=== PATIENT | male | born 1990 | race Caucasian/White ===

== ENCOUNTER 2017-04-23 01:45 | Emergency (ER) | payer BC ==
[2017-04-23 02:22] VITALS: BP 177/80
[2017-04-23 02:46] LABS: CHLORIDE,CL 102 mEq/L (98-106); SODIUM,NA 137 mEq/L (136-145)
--- NOTE | 2017-04-23 02:47 | EDM.PDOC ---
ED HPI GENERAL MEDICAL PROBLEM - General Chief Complaint: General Stated Complaint: anxiety Time Seen by Provider: 04/23/17 02:30 Source of Information: Reports: Patient History Limitations: Reports: No Limitations - History of Present Illness INITIAL COMMENTS - FREE TEXT/NARRATIVE: Oswaldo is a 26 year old male who presents to the ED with complaints of heart palpitations and a tightness in his chest. He reports that on he had an episode, which lasted 4-5 minutes, of his heart racing. He reports he kind of got panicked and worried. He reports that since then he has had a tightness in his left upper chest. He reports that he feels like its in his head and he worries about it. He reports that he has been able to sleep the last two nights , but tonight he fell asleep and had an episode where he had a jolt through his body. He denies any history of anxiety, but does report he has had increased stress in his life. 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 He does not feel this affects him, but his father feels that maybe he has taken on too much recently. Denies any real chest pain, other than what he describes as tightness. Denies any shortness of breath, cough, N/V/D, or recent illness. Does report he has high blood pressure. He reports he takes 100 mg losartan daily. He has been taking his blood pressure medications as prescribed. Does report that he has been checking his blood pressure at home and it runs 160's/80 's. No family history of early cardiac disease. Patient does report he has an appointment scheduled with his PCP Dr. Vásquez this afternoon. 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: Other Medication(s) (NyQuil) - Related Data Allergies Allergy/AdvReac Type Severity Reaction Status Date / Time No Known Allergies Allergy Verified 04/23/17 02:02 Home Meds: Home Meds Losartan [Cozaar] 1 tab PO DAILY 10/01/16 [History] Past Medical History HEENT History: Reports: Impaired Vision Cardiovascular History: Reports: Hypertension Social & Family History - Family History Family Medical History: Noncontributory - Tobacco Use Smoking Status *Q: Never Smoker Second Hand Smoke Exposure: No - Caffeine Use Caffeine Use: Reports: Coffee, Soda - Recreational Drug Use Recreational Drug Use: No ED ROS GENERAL - Review of Systems Review Of Systems: See Below Constitutional: Reports: No Symptoms. Denies: Fever, Chills, Malaise, Weakness , Fatigue HEENT: Reports: No Symptoms Respiratory: Reports: No Symptoms. Denies: Shortness of Breath, Pleuritic Chest Pain, Cough, Sputum Cardiovascular: Reports: Chest Pain (tightness to left upper ), Blood Pressure Problem (high blood pressure), Palpitations (intermittent). Denies: Dyspnea on Exertion, Edema, Lightheadedness, Syncope Endocrine: Reports: No Symptoms GI/Abdominal: Reports: No Symptoms. Denies: Abdominal Pain, Diarrhea, Nausea, Vomiting : Reports: No Symptoms Musculoskeletal: Reports: No Symptoms Skin: Reports: No Symptoms Neurological: Reports: No Symptoms. Denies: Confusion, Dizziness, Headache Psychiatric: Reports: Anxiety Hematologic/Lymphatic: Reports: No Symptoms Immunologic: Reports: No Symptoms ED EXAM, GENERAL - Physical Exam Exam: See Below Exam Limited By: No Limitations General Appearance: Alert, WD/WN, Anxious Eye Exam: Bilateral Eye: PERRL Head: Atraumatic, Normocephalic Neck: Normal Inspection, Supple, Non-Tender, Full Range of Motion Respiratory/Chest: No Respiratory Distress, Lungs Clear, Normal Breath Sounds, No Accessory Muscle Use, Chest Non-Tender Cardiovascular: Normal Peripheral Pulses, Regular Rate, Rhythm, No Edema, No Gallop, No JVD, No Murmur, No Rub Neurological: Alert, Oriented, CN II-XII Intact, Normal Cognition, Normal Gait, Normal Reflexes, No Motor/Sensory Deficits Psychiatric: Anxious Skin Exam: Warm, Dry, Intact, Normal Color, No Rash Lymphatic: No Adenopathy Course - Vital Signs Last Recorded V/S: Last Vital Signs Temp 97.2 F 04/23/17 02:14 Pulse 67 04/23/17 02:14 Resp 18 04/23/17 02:14 BP 177/80 H 04/23/17 02:14 Pulse Ox 97 04/23/17 02:14 - Orders/Labs/Meds Orders: Active Orders 24 hr Category Date Time Status EKG Documentation Completion [RC] STAT Care 04/23/17 02:03 Active Labs: Laboratory Tests 04/23/17 04/23/17 Range/Units 02:15 02:15 WBC 9.7 (5.0-10.0) 10^3/uL RBC 5.05 (4.50-6.00) 10^6/uL Hgb 15.1 (14.0-18.0) g/dL Hct 43.5 (40.0-54.0) % MCV 86.1 (82.0-94.0) fL MCH 29.9 (27.0-32.0) pg MCHC 34.7 (33.0-38.0) g/dL RDW Coeff of Mika 12.6 (11.0-15.0) % Plt Count 258 (150-400) 10^3/uL Neut % (Auto) 54.6 (35-85) % Lymph % (Auto) 35.3 (10-55) % [place] % (Auto) 9.5 (0-16) % Eos % (Auto) 0.4 (0-5) % Baso % (Auto) 0.2 (0-3) % Neut # (Auto) 5.30 (1.80-7.00) 10^3/uL Lymph # (Auto) 3.43 (1.00-4.80) 10^3/uL [place] # (Auto) 0.92 H (0.00-0.80) 10^3/uL Eos # (Auto) 0.04 (0.00-0.45) 10^3/uL Baso # (Auto) 0.02 10^3/uL Sodium 137 (136-145) mEq/L Potassium 4.2 (3.5-5.0) mEq/L Chloride 102 (98-106) mEq/L Carbon Dioxide 25 (21-32) mmol/L BUN 16 (7-18) mg/dL Creatinine 1.0 (0.7-1.3) mg/dL Est Cr Clr Drug Dosing 131.54 mL/min Estimated GFR (MDRD) > 60 (>=60) mL/min Glucose 119 H (75-99) mg/dL Calcium 9.2 (8.4-10.1) mg/dL Total Bilirubin 0.5 (0.0-1.0) mg/dL AST 16 (15-37) U/L ALT 26 (12-78) U/L Alkaline Phosphatase 90 (46-116) U/L Troponin I < 0.017 (0.00-0.06) ng/mL Total Protein 7.8 (6.4-8.2) g/dL Albumin 4.2 (3.4-5.0) g/dL Meds: Medications Discontinued Medications Generic Name Dose Route Start Last Admin Trade Name Freq PRN Reason Stop Dose Admin Alprazolam 0.5 mg 04/23/17 02:50 04/23/17 03:00 Alprazolam Odt PO 04/23/17 02:51 Not Given ONETIME ONE Alprazolam Confirm 04/23/17 02:50 04/23/17 03:00 Xanax Administered 04/23/17 02:51 Not Given Dose 0.5 mg .ROUTE .STK-MED ONE Alprazolam 0.5 mg 04/23/17 03:00 04/23/17 03:01 Xanax PO 04/23/17 03:01 0.5 mg ONETIME ONE Administration Alprazolam 1 mg 04/23/17 03:10 Xanax PO 04/23/17 03:11 ONETIME ONE - Re-Assessments/Exams Free Text/Narrative Re-Assessment/Exam: 04/23/17 02:49 BP elevated. Labs all stable. Discussed labs and EKG with patient and his father. Patient appears very anxious. Will give one dose Xanax to see if this helps BP. Departure - Departure Time of Disposition: 03:13 Disposition: Home, Self-Care 01 Condition: Good Clinical Impression: Anxiety, Heart palpitations - Discharge Information Instructions: Panic Attacks, Palpitations Referrals: Malcolm Vásquez MD [Primary Care Provider] - Forms: ED Department Discharge Additional Instructions: All labs stable. EKG shows normal sinus rhythm. Sent home with two 0.5 mg Xanax tabs. Take one tab Q 6 hours as needed. Discussed initiating anxiety medication. Patient agreeable. Recommend 24 hour Holter monitor. Patient to come at 2:00 to radiology to apply. Follow up with Dr. Page for blood pressure recheck - My Orders Last 24 Hours: My Active Orders 04/23/17 02:03 EKG Documentation Completion [RC] STAT - Assessment/Plan Last 24 Hours: My Active Orders 04/23/17 02:03 EKG Documentation Completion [RC] STAT
[2017-04-23] MEDS ORDERED: ALPRAZolam 0.25 MG Tab ONE (02:50)
[2017-04-23] MEDS ORDERED: ALPRAZolam 0.5 MG Tab.DIS (ODT) PO ONE (02:50)
[2017-04-23] MEDS ORDERED: ALPRAZolam 0.25 MG Tab PO ONE ×2 (03:00→03:10)
== END 2017-04-23 03:25 | disposition home or self-care (01) ==
LOC: CC.ED 01:45
DX: F41.9 Anxiety disorder, unspecified (principal); I10 Essential (primary) hypertension; R00.2 Palpitations
CPT/HCPCS: 36415; 80053; 84484; 85025; 93005; 93225; 93226; 99283; A9270

== ENCOUNTER 2017-04-27 02:08 | Emergency (ER) | payer BC ==
[2017-04-27 02:42] VITALS: BP 134/79
--- NOTE | 2017-04-27 02:56 | EDM.PDOC ---
ED HPI GENERAL MEDICAL PROBLEM - General Chief Complaint: Cardiovascular Problem Stated Complaint: high blood pressure, racing heart Time Seen by Provider: 04/27/17 02:37 Source of Information: Reports: Patient History Limitations: Reports: No Limitations - History of Present Illness INITIAL COMMENTS - FREE TEXT/NARRATIVE: Patient presents to ER this am with complaints of palpitations. He states he was jolted awake with this. Took his pulse and blood pressure at home and his heart rate was 101, blood pressure 190/109. He has been experiencing this several times over the last week. 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 Was in to ER on Sunday am with palpitations, work up was negative. Is dealing now more with anxiety when these episodes happen. Followed up with Dr. Vásquez on Sunday and was started on Paxil and given Xanax. He states he did take a Xanax about 4 hours prior to coming here to help him relax and go to sleep. He hasn't been ill, no fevers, cough, N/V/D. States chest felt tight, started to feel short of breath. Onset: Today, Sudden Duration: Minutes: Location: Reports: Chest Quality: Reports: Other (tightness) Severity: Moderate Associated Symptoms: Reports: Chest Pain, Shortness of Breath. Denies: Confusion, Cough, Diaphoresis, Fever/Chills, Loss of Appetite, Nausea/Vomiting, Weakness Treatments AUDIT TECH: Reports: Other Medication(s) Other Treatments AUDIT TECH: pt reports taking xanax 4hours ago - Related Data Allergies Allergy/AdvReac Type Severity Reaction Status Date / Time lisinopril Allergy Other Verified 04/27/17 02:56 Home Meds: Home Meds Losartan [Cozaar] 100 mg PO DAILY 10/01/16 [History] ALPRAZolam [Xanax] 0.5 mg PO Q8H PRN 04/27/17 [History] PARoxetine [Paxil] 20 mg PO DAILY 04/27/17 [History] Past Medical History HEENT History: Reports: Impaired Vision Cardiovascular History: Reports: Hypertension Psychiatric History: Reports: Anxiety Social & Family History - Family History Family Medical History: Noncontributory - Tobacco Use Smoking Status *Q: Never Smoker Second Hand Smoke Exposure: No - Caffeine Use Caffeine Use: Reports: None - Recreational Drug Use Recreational Drug Use: No ED ROS GENERAL - Review of Systems Review Of Systems: See Below Constitutional: Denies: Fever, Chills, Malaise, Weakness, Fatigue HEENT: Reports: No Symptoms Respiratory: Reports: Shortness of Breath. Denies: Wheezing, Cough Cardiovascular: Reports: Chest Pain, Blood Pressure Problem. Denies: Edema, Lightheadedness Endocrine: Denies: Fatigue GI/Abdominal: Denies: Abdominal Pain, Constipation, Diarrhea, Nausea, Vomiting : Reports: No Symptoms Musculoskeletal: Reports: No Symptoms Skin: Reports: No Symptoms ED EXAM, GENERAL - Physical Exam Exam: See Below Exam Limited By: No Limitations General Appearance: Alert, WD/WN, No Apparent Distress Ears: Normal External Exam, Normal TMs Nose: Normal Inspection, Normal Mucosa, No Blood Throat/Mouth: Normal Inspection, Normal Oropharynx Head: Normocephalic Neck: Normal Inspection, Supple, Non-Tender Respiratory/Chest: No Respiratory Distress, Lungs Clear, Normal Breath Sounds Cardiovascular: Normal Peripheral Pulses, Regular Rate, Rhythm, No Edema GI/Abdominal: Normal Bowel Sounds, Soft, Non-Tender Extremities: Normal Inspection, Normal Capillary Refill Neurological: Alert, Oriented Skin Exam: Warm, Dry Course - Vital Signs Last Recorded V/S: Last Vital Signs Temp 97.3 F 04/27/17 02:11 Pulse 54 L 04/27/17 02:41 Resp 18 04/27/17 02:11 BP 134/79 04/27/17 02:41 Pulse Ox 100 04/27/17 02:41 - Orders/Labs/Meds Orders: Active Orders 24 hr Category Date Time Status EKG Documentation Completion [RC] STAT Care 04/27/17 02:33 Active Labs: Laboratory Tests 04/27/17 Range/Units 02:49 Lactate Dehydrogenase 160 (100-190) U/L Creatine Kinase 146 (35-232) U/L Troponin I < 0.017 (0.00-0.06) ng/mL - Re-Assessments/Exams Free Text/Narrative Re-Assessment/Exam: 04/27/17 02:56 On my arrival, heart rate down to 60, blood pressure stable. Patient states still feels some chest tightness, heart not racing anymore. 04/27/17 03:13 Labs normal Departure - Departure Time of Disposition: 03:13 Disposition: Home, Self-Care 01 Condition: Good Clinical Impression: Anxiety, Heart palpitations Referrals: Malcolm Vásquez MD [Primary Care Provider] - Forms: ED Department Discharge Additional Instructions: 1. Rest 2. May use Xanax as needed for anxiety 3. Will consider an event monitor to rule out abnormal rhythm 4. Notify us of any recurring events - My Orders Last 24 Hours: My Active Orders 04/27/17 02:33 EKG Documentation Completion [RC] STAT - Assessment/Plan Last 24 Hours: My Active Orders 04/27/17 02:33 EKG Documentation Completion [RC] STAT
== END 2017-04-27 03:19 | disposition home or self-care (01) ==
LOC: CC.ED 02:08
DX: R00.2 Palpitations (principal); F41.9 Anxiety disorder, unspecified; I10 Essential (primary) hypertension; Z88.8 Allergy status to other drugs, medicaments and biological substances; Z79.899 Other long term (current) drug therapy
CPT/HCPCS: 36415; 82550; 83615; 84484; 93005; 99285

== ENCOUNTER 2020-02-15 20:59 | Emergency (ER) | payer BC ==
[2020-02-15 21:04] VITALS: PULSE 85
[2020-02-15 21:26] VITALS: BP 149/88
--- NOTE | 2020-02-15 21:43 | EDM.PDOC ---
ED HPI GENERAL MEDICAL PROBLEM - General Chief Complaint: General Stated Complaint: SOB, covid? Time Seen by Provider: 02/15/20 21:25 Source of Information: Reports: Patient History Limitations: Reports: No Limitations - History of Present Illness INITIAL COMMENTS - FREE TEXT/NARRATIVE: This patient is a 29 year old male that presents to the ER. Patient reports that earlier today that he started having a little pain in his chest. He describes the pain as a "pulling" sensation. He reports that it feels like he cant get a full breath in. He reports being mildly short of breath with it. Patient denies any other symptoms. Onset: Today Onset Date: 02/15/20 Onset Time: 14:00 Location: Reports: Chest Severity: Mild Improves with: Reports: None Worsens with: Reports: None Associated Symptoms: Reports: Chest Pain, Shortness of Breath. Denies: Confusion, Cough, cough w sputum, Diaphoresis, Fever/Chills, Headaches, Loss of Appetite, Malaise, Nausea/Vomiting, Rash, Seizure, Syncope, Weakness Middle Chest Pain Score (Numeric/FACES): 2 - Related Data Allergies Allergy/AdvReac Type Severity Reaction Status Date / Time lisinopril Allergy Other Verified 02/15/20 20:59 Home Meds: Home Meds Losartan [Cozaar] 100 mg PO DAILY 10/01/16 [History] Acetaminophen 1,000 mg PO Q6HR PRN 08/03/18 [History] Ibuprofen 600 mg PO Q6HR PRN 08/03/18 [History] Metoprolol Succinate 100 mg PO DAILY 08/03/18 [History] buPROPion [buPROPion XL] 150 mg PO DAILY 02/15/20 [History] Past Medical History HEENT History: Reports: Impaired Vision Cardiovascular History: Reports: Hypertension Psychiatric History: Reports: Anxiety Social & Family History - Family History Family Medical History: No Pertinent Family History - Tobacco Use Tobacco Use Status *Q: Never Tobacco User - Caffeine Use Caffeine Use: Reports: None - Recreational Drug Use Recreational Drug Use: No ED ROS GENERAL - Review of Systems Review Of Systems: See Below Constitutional: Reports: No Symptoms HEENT: Reports: No Symptoms. Denies: Rhinitis, Sinus Problem Respiratory: Reports: Shortness of Breath, Pleuritic Chest Pain. Denies: Wheezing, Cough, Sputum, Hemoptysis Cardiovascular: Denies: Chest Pain, Blood Pressure Problem, Dyspnea on Exertion, Edema, Lightheadedness, Palpitations, Syncope Endocrine: Reports: No Symptoms GI/Abdominal: Reports: No Symptoms. Denies: Abdominal Pain, Diarrhea, Nausea, Vomiting : Reports: No Symptoms Musculoskeletal: Reports: No Symptoms Skin: Reports: No Symptoms Neurological: Reports: No Symptoms Psychiatric: Reports: No Symptoms Hematologic/Lymphatic: Reports: No Symptoms Immunologic: Reports: No Symptoms ED EXAM, GENERAL - Physical Exam Exam: See Below Exam Limited By: No Limitations General Appearance: Alert, WD/WN, No Apparent Distress Eye Exam: Bilateral Eye: Normal Inspection, PERRL Ears: Normal External Exam, Normal Canal, Hearing Grossly Normal, Normal TMs Ear Exam: Bilateral Ear: Auricle Normal, Canal Normal, TM normal Nose: Normal Inspection, Normal Mucosa, No Blood Throat/Mouth: Normal Inspection, Normal Lips, Normal Teeth, Normal Gums, Normal Oropharynx, Normal Voice, No Airway Compromise Head: Atraumatic, Normocephalic Neck: Normal Inspection, Supple, Non-Tender, Full Range of Motion Respiratory/Chest: No Respiratory Distress, Lungs Clear, Normal Breath Sounds, N o Accessory Muscle Use, Chest Non-Tender. No: Respiratory Distress Cardiovascular: Normal Peripheral Pulses, Regular Rate, Rhythm, No Edema, No Gallop, No JVD, No Murmur, No Rub Peripheral Pulses: 2+: Radial (L), Radial (R), Posterior Tibial (L), Posterior Tibial (R) Back Exam: Normal Inspection, Full Range of Motion Extremities: Normal Inspection, Normal Range of Motion, Non-Tender, No Pedal Edema, Normal Capillary Refill Neurological: Alert, Oriented, Normal Cognition, Normal Gait, No Motor/Sensory Deficits Psychiatric: Anxious Skin Exam: Warm, Dry, Intact, Normal Color, No Rash Lymphatic: No Adenopathy #1 Interpretation EKG Date: 02/15/20 Time: 21:11 Rhythm: NSR Rate (Beats/Min): 78 [place]: Normal P-Wave: Present QRS: Normal ST-T: Normal QT: Normal Course - Vital Signs Last Recorded V/S: Last Vital Signs Temp 98.9 F 02/15/20 21:01 Pulse 85 02/15/20 21:01 Resp 16 02/15/20 21:01 BP 149/88 H 02/15/20 21:16 Pulse Ox 98 02/15/20 21:01 - Orders/Labs/Meds Orders: Active Orders 24 hr Category Date Time Status EKG Documentation Completion [RC] STAT Care 02/15/20 21:31 Active CXR [Chest 2V] [CR] Stat Exams 02/15/20 21:16 Taken Labs: Laboratory Tests 02/15/20 02/15/20 02/15/20 Range/Units 21:04 21:28 21:28 WBC 8.2 (5.0-10.0) 10^3/uL RBC 5.03 (4.50-6.00) 10^6/uL Hgb 15.0 (14.0-18.0) g/dL Hct 42.9 (40.0-54.0) % MCV 85.3 (82.0-94.0) fL MCH 29.8 (27.0-32.0) pg MCHC 35.0 (33.0-38.0) g/dL RDW Coeff of Mika 13.3 (11.0-15.0) % Plt Count 272 (150-400) 10^3/uL Neut % (Auto) 46.5 (35-85) % Lymph % (Auto) 41.2 (10-55) % [place] % (Auto) 9.9 (0-16) % Eos % (Auto) 2.0 (0-5) % Baso % (Auto) 0.4 (0-3) % Neut # (Auto) 3.81 (1.80-7.00) 10^3/uL Lymph # (Auto) 3.37 (1.00-4.80) 10^3/uL [place] # (Auto) 0.81 H (0.00-0.80) 10^3/uL Eos # (Auto) 0.16 (0.00-0.45) 10^3/uL Baso # (Auto) 0.03 10^3/uL PT 10.4 (9.7-12.3) SEC INR 1.03 (0.92-1.18) APTT 25.1 (23.2-32.3) SEC D-Dimer, Quantitative 0.27 (0.00-0.50) Sodium (136-145) mEq/L Potassium (3.5-5.0) mEq/L Chloride (98-106) mEq/L Carbon Dioxide (21-32) mmol/L BUN (7-18) mg/dL Creatinine (0.7-1.3) mg/dL Est Cr Clr Drug Dosing mL/min Estimated GFR (MDRD) (>=60) mL/min Glucose (75-99) mg/dL Lactic Acid (0.4-2.0) mmol/L Calcium (8.4-10.1) mg/dL Total Bilirubin (0.0-1.0) mg/dL AST (15-37) U/L ALT (12-78) U/L Alkaline Phosphatase (46-116) U/L Creatine Kinase (35-232) U/L Troponin I (0.00-0.06) ng/mL NT-Pro-B Natriuret Pep (0-1000) pg/mL Total Protein (6.4-8.2) g/dL Albumin (3.4-5.0) g/dL SARS CoV-2 RNA Rapid AMBER Negative (NEGATIVE) 02/15/20 02/15/20 Range/Units 21:28 21:28 WBC (5.0-10.0) 10^3/uL RBC (4.50-6.00) 10^6/uL Hgb (14.0-18.0) g/dL Hct (40.0-54.0) % MCV (82.0-94.0) fL MCH (27.0-32.0) pg MCHC (33.0-38.0) g/dL RDW Coeff of Mika (11.0-15.0) % Plt Count (150-400) 10^3/uL Neut % (Auto) (35-85) % Lymph % (Auto) (10-55) % [place] % (Auto) (0-16) % Eos % (Auto) (0-5) % Baso % (Auto) (0-3) % Neut # (Auto) (1.80-7.00) 10^3/uL Lymph # (Auto) (1.00-4.80) 10^3/uL Taylor # (Auto) (0.00-0.80) 10^3/uL Eos # (Auto) (0.00-0.45) 10^3/uL Baso # (Auto) 10^3/uL PT (9.7-12.3) SEC INR (0.92-1.18) APTT (23.2-32.3) SEC D-Dimer, Quantitative (0.00-0.50) Sodium 140 (136-145) mEq/L Potassium 3.7 (3.5-5.0) mEq/L Chloride 104 (98-106) mEq/L Carbon Dioxide 27 (21-32) mmol/L BUN 12 (7-18) mg/dL Creatinine 1.1 (0.7-1.3) mg/dL Est Cr Clr Drug Dosing 114.00 mL/min Estimated GFR (MDRD) > 60 (>=60) mL/min Glucose 134 H (75-99) mg/dL Lactic Acid 1.6 (0.4-2.0) mmol/L Calcium 8.9 (8.4-10.1) mg/dL Total Bilirubin 0.3 (0.0-1.0) mg/dL AST 13 L (15-37) U/L ALT 27 (12-78) U/L Alkaline Phosphatase 98 (46-116) U/L Creatine Kinase 158 (35-232) U/L Troponin I < 0.017 (0.00-0.06) ng/mL NT-Pro-B Natriuret Pep 6 (0-1000) pg/mL Total Protein 7.8 (6.4-8.2) g/dL Albumin 4.2 (3.4-5.0) g/dL SARS CoV-2 RNA Rapid ABMER (NEGATIVE) - Radiology Interpretation Free Text/Narrative:: CXR: no acute findings Departure - Departure Time of Disposition: 22:13 Disposition: Home, Self-Care 01 Condition: Good Clinical Impression: Anxiety, Shortness of breath - Discharge Information *PRESCRIPTION DRUG MONITORING PROGRAM REVIEWED*: Not Applicable *COPY OF PRESCRIPTION DRUG MONITORING REPORT IN PATIENT GARCIA: Not Applicable Instructions: Shortness of Breath, Adult, [id number], COVID-19: How to Protect Yourself and Others - CDC, Infection Prevention in the Home Referrals: PCP,None [Primary Care Provider] - Forms: ED Department Discharge Additional Instructions: Followup with your primary care provider if this continues Return to the ER for worsening of condition or any emergent concerns Tylenol or Motrin for pain Go home and rest and relax Sepsis Event Note (ED) - Evaluation Sepsis Screening Result: No Definite Risk - Focused Exam Vital Signs: Vital Signs Temp Pulse Resp BP Pulse Ox 02/15/20 21:16 149/88 H 02/15/20 21:01 98.9 F 85 16 165/93 H 98 - My Orders Last 24 Hours: My Active Orders 02/15/20 21:16 CXR [Chest 2V] [CR] Stat 02/15/20 21:31 EKG Documentation Completion [RC] STAT - Assessment/Plan Last 24 Hours: My Active Orders 02/15/20 21:16 CXR [Chest 2V] [CR] Stat 02/15/20 21:31 EKG Documentation Completion [RC] STAT Plan: PLEASE SEE RN NOTE FOR PFSH
[2020-02-15 21:51] LABS: CHLORIDE,CL 104 mEq/L (98-106); SODIUM,NA 140 mEq/L (136-145)
[2020-02-15 22:05] LABS: PTT,PARTIAL THROMBOPLSTIN TIME 25.1 SEC (23.2-32.3)
== END 2020-02-15 22:23 | disposition home or self-care (01) ==
LOC: CC.ED 20:59
DX: R06.02 Shortness of breath (principal); F41.9 Anxiety disorder, unspecified; I10 Essential (primary) hypertension; Z20.828 Contact with and (suspected) exposure to other viral communicable diseases; Z79.899 Other long term (current) drug therapy; Z88.8 Allergy status to other drugs, medicaments and biological substances
CPT/HCPCS: 36415; 71046; 80053; 82550; 83605; 83880; 84484; 85025; 85379; 85610; 85730; 93005; 99285-25; U0002